=== PATIENT | male | born 1960 | race African-American/Black ===

== ENCOUNTER 2023-11-15 20:29 | Emergency (ER) | payer BC ==
[~2023-11-15] VITALS: Ht 162.6 cm; Wt 98.0 kg
[2023-11-15 20:34] VITALS: TEMP 98.4; O2SAT 98
[2023-11-15 23:03] VITALS: BP 135/72; PULSE 52; RESP 13
[2023-11-15 23:13] LABS: BASOPHILS % 0.9 % (0.0-2.0); EOSINOPHILS % 0.9 % (0.0-5.0); HEMATOCRIT. 30.1 % (42.0-52.0); HEMOGLOBIN. 9.8 g/dL (14.0-18.0); LYMPHOCYTES % 11.7 % (20.0-50.0); MEAN CORPUSCULAR HEMOGLOBIN 31.2 pg (28.0-32.0); MEAN CORPUSCULAR HGB CONC 32.5 g/dL (31.0-37.0); MEAN CORPUSCULAR VOLUME 95.9 fL (80.0-94.0); MONOCYTES % 7.4 % (2.0-8.0); NEUTROPHILS % 79.1 % (40.0-76.0); PLATELET 184 x1000/uL (130-400); RED BLOOD CELL COUNT 3.14 mill/uL (4.7-6.1); RED CELL DISTRIBUTION WIDTH 17.9 % (11.6-14.6); WHITE BLOOD COUNT 9.6 x1000/uL (4.5-11.0)
[2023-11-15 23:19] LABS: CHLORIDE 104 mEq/L (98-107); POTASSIUM 5.2 mEq/L (3.5-5.1); SODIUM 137 mEq/L (136-145)
[2023-11-15 23:20] LABS: CALCIUM 8.7 mg/dL (8.7-10.4); CARBON DIOXIDE 25 mEq/L (21-32)
[2023-11-15 23:23] LABS: INR 1.2; PROTHROMBIN TIME 13.2 sec (9.6-11.0)
[2023-11-15 23:25] LABS: GLUCOSE 107 mg/dL (70-105); UREA NITROGEN BLOOD 41 mg/dL (9-23)
[2023-11-15 23:31] LABS: ETHANOL BLOOD < 10 mg/dL (<10)
[2023-11-15 23:33] LABS: CREATININE 12.3 mg/dL (0.6-1.3)
[2023-11-15 23:34] LABS: TROPONIN I HIGH SENSITIVITY 216 ng/L (3.0-53)
== END 2023-11-16 00:20 | disposition left against medical advice (07) ==
LOC: ER 20:29
DX: E11.22 Type 2 diabetes mellitus with diabetic chronic kidney disease (principal); N18.6 End stage renal disease; I21.3 ST elevation (STEMI) myocardial infarction of unspecified site; E87.5 Hyperkalemia; I10 Essential (primary) hypertension; Z53.21 Procedure and treatment not carried out due to patient leaving prior to being seen by health care provider; Z91.048 Other nonmedicinal substance allergy status; Z98.890 Other specified postprocedural states
CPT/HCPCS: 36415; 71045; 80048; 80320; 82962; 84484; 85025; 93005; 99285; G0480

== ENCOUNTER 2023-12-05 11:04 | Inpatient (IN) | payer BC, MEDICARE ==
[2023-12-05] VITALS (8 sets, daily range): BP systolic 73–136; BP diastolic 40–103; PULSE 68–79; RESP 18–20; TEMP 35.33616–35.89176; O2SAT 100
[~2023-12-05] VITALS: Ht 167.6 cm; Wt 107.0 kg
[~2023-12-05 11:04] MED LIST: ATOR40TA70 PO; HYDR25TA78 PO; INSU100I13 SQ; LACT1CAP77 PO; LANTUSUD SUBCUT; LEVO-65 PO; MECL-299 PO; NIFE-33 PO; OLAN5TAB74 PO; SEVE800T8 PO
[2023-12-05 12:18] LABS: HEMATOCRIT. 24.3 % (42.0-52.0); HEMOGLOBIN. 7.9 g/dL (14.0-18.0); MEAN CORPUSCULAR HGB CONC 32.3 g/dL (31.0-37.0); MEAN CORPUSCULAR VOLUME 92.9 fL (80.0-94.0); MEAN PLATELET VOLUME 9.1 fl (7.4-10.4); PLATELET 258 x1000/uL (130-400); RED BLOOD CELL COUNT 2.62 mill/uL (4.7-6.1); RED CELL DISTRIBUTION WIDTH 16.2 % (11.6-14.6); WHITE BLOOD COUNT 11.9 x1000/uL (4.5-11.0)
[2023-12-05 12:21] LABS: DIFFERENTIAL COMMENT 1
[2023-12-05 12:23] LABS: CHLORIDE 102 mEq/L (98-107); POTASSIUM 5.2 mEq/L (3.5-5.1); SODIUM 137 mEq/L (136-145)
[2023-12-05 12:24] LABS: CARBON DIOXIDE 26 mEq/L (21-32)
[2023-12-05 12:25] LABS: CALCIUM 8.7 mg/dL (8.7-10.4)
[2023-12-05 12:29] LABS: GLUCOSE 168 mg/dL (70-105)
[2023-12-05 12:30] LABS: UREA NITROGEN BLOOD 47 mg/dL (9-23)
[2023-12-05 12:40] LABS: ACETAMINOPHEN < 2 ug/mL (10-30); ALANINE AMINOTRANSFERASE 36 IU/L (10-49); ALBUMIN 3.1 g/dL (3.2-4.8); ASPARTATE AMINOTRANSFERASE 36 IU/L (<34); BILIRUBIN DIRECT 0.1 mg/dL (<=3.0); BILIRUBIN TOTAL 0.3 mg/dL (0.1-1.0); PROTEIN TOTAL 6.1 g/dL (6.0-8.3)
[2023-12-05 12:43] LABS: THYROID STIMULATING HORMONE 7.22 uIU/mL (0.55-4.78)
[2023-12-05 12:44] LABS: AMMONIA < 17 uMol/L (<32)
[2023-12-05 12:56] LABS: TROPONIN I HIGH SENSITIVITY 90 ng/L (3.0-53)
[2023-12-05 12:58] LABS: ETHANOL BLOOD < 10 mg/dL (<10)
[2023-12-05 14:10] LABS: ANISOCYTOSIS 1+; PLATELET ESTIMATE NORMAL
[2023-12-05] MEDS: ASPIRIN 325MG TABLET PO ONE (14:46)
[2023-12-05] MEDS: SODIUM CHLORIDE 0.9% 250 ML IV ONE (20:56)
[2023-12-05] MEDS ORDERED: NOREPINEPHRINE 8MG/250ML PMX 250 ML IV PRN (22:00)
[2023-12-05] MEDS ORDERED: PHENYLEPHRINE 100 MG in DEXT 5% WATER 240 ML IV PRN (22:00)
[2023-12-05] MEDS ORDERED: PANTOPRAZOLE SODIUM 40 MG/VIAL IV SCH (22:15)
[2023-12-05 22:16] LABS: MEAN CORPUSCULAR HEMOGLOBIN 31.1 pg (28.0-32.0); MEAN CORPUSCULAR HGB CONC 32.9 g/dL (31.0-37.0); MEAN CORPUSCULAR VOLUME 94.4 fL (80.0-94.0); MEAN PLATELET VOLUME 9.1 fl (7.4-10.4); PLATELET 177 x1000/uL (130-400); RED BLOOD CELL COUNT 1.66 mill/uL (4.7-6.1); RED CELL DISTRIBUTION WIDTH 15.8 % (11.6-14.6); WHITE BLOOD COUNT 12.1 x1000/uL (4.5-11.0)
[2023-12-05 22:17] LABS: DIFFERENTIAL COMMENT 1
[2023-12-05 22:22] LABS: POTASSIUM 3.6 mEq/L (3.5-5.1)
[2023-12-05 22:23] LABS: CALCIUM 7.6 mg/dL (8.7-10.4); INR 1.1; PROTHROMBIN TIME 12.2 sec (9.6-11.0)
[2023-12-05 22:24] LABS: HEMOGLOBIN. 5.2 g/dL (14.0-18.0)
[2023-12-05 22:25] LABS: HEMATOCRIT. 15.7 % (42.0-52.0)
[2023-12-05] MEDS: PANTOPRAZOLE SODIUM 40 MG/VIAL IV SCH (22:28)
[2023-12-05] MEDS: SODIUM CHLORIDE 0.9% 500 ML IV ONE (22:28)
[2023-12-05 22:31] LABS: CREATININE 7.8 mg/dL (0.6-1.3)
[2023-12-05 22:41] LABS: PLATELET ESTIMATE NORMAL
[2023-12-05] MEDS: OCTREOTIDE 1,000 MCG in SODIUM CHLORIDE 0.9% 100 ML IV NR (23:38)
[2023-12-05] MEDS: OCTREOTIDE ACETATE 50 MCG/ML 1ML IV NR (23:39)
[2023-12-06] VITALS (90 sets, daily range): BP systolic 66–189; BP diastolic 16–160; PULSE 66–99; RESP 9–28; TEMP 35.584–36.9474; O2SAT 93–100
[2023-12-06 01:54] LABS: AMMONIA < 17 uMol/L (<32)
[2023-12-06 04:46] LABS: MEAN CORPUSCULAR HEMOGLOBIN 30.6 pg (28.0-32.0); MEAN CORPUSCULAR HGB CONC 32.7 g/dL (31.0-37.0); MEAN CORPUSCULAR VOLUME 93.7 fL (80.0-94.0); PLATELET 214 x1000/uL (130-400); RED BLOOD CELL COUNT 2.17 mill/uL (4.7-6.1); RED CELL DISTRIBUTION WIDTH 15.5 % (11.6-14.6); WHITE BLOOD COUNT 16.8 x1000/uL (4.5-11.0)
[2023-12-06 04:59] LABS: POTASSIUM 4.5 mEq/L (3.5-5.1)
[2023-12-06 05:01] LABS: CALCIUM 8.1 mg/dL (8.7-10.4)
[2023-12-06 05:02] LABS: BG BASE EXCESS -0.5 mmol/L (-2.0-2.0); BG CARBOXYHEMOGLOBIN 0.3 % (0.5-1.5); BG DEOXYHEMOGLOBIN 0.4 % (0.0-5.0); BG FRACTION INSPIRED OXYGEN 100; BG HCO3 ACT 22.9 mmol/L (22.0-26.0); BG OXYGEN SATURATION 99.6 % (92.0-98.5); BG OXYHEMOGLOBIN 99.3 % (94.0-97.0); BG PCO2 33.4 mmHg (35.0-45.0); BG PH 7.454 (7.350-7.450); BG PO2 299.7 mmHg (75.0-100.0); BG SAMPLE SITE RIGHT RADIAL; BG TOTAL HEMOGLOBIN 10.8 g/dL (12.0-18.0); BG VENT MODE MASK - NRB
[2023-12-06 05:03] LABS: HEMATOCRIT 20.3 % (42.0-52.0); HEMOGLOBIN 6.6 g/dL (14.0-18.0)
[2023-12-06 05:16] LABS: CREATININE 8.4 mg/dL (0.6-1.3)
[2023-12-06] MEDS ORDERED: DEXTROSE 50% WATER 50ML SYRINGE IV PRN (05:30)
[2023-12-06] MEDS: BLOOD SUGAR DIAGNOSTIC STRIP TEST SCH (07:10)
[2023-12-06] MEDS: INSULIN LISPRO 100 UNITS/ML SUBCUT SCH (08:20)
[2023-12-06] MEDS: PIPERACILLIN/TAZO 3.375G/50ML 50 ML IV SCH (09:21)
[2023-12-06] MEDS: VANCOMYCIN 1.5GM/250ML 250 ML IV NR (13:14)
[2023-12-06] MEDS ORDERED: NALOXONE HCL 0.4MG/ML VIAL IV PRN (15:15)
[2023-12-06] MEDS: LEVOFLOXACIN 500MG PREMIX 100 ML IV SCH (20:58)
[2023-12-06] MEDS: PANTOPRAZOLE 80 MG in SODIUM CHLORIDE 0.9% 100 ML IV SCH (20:58)
[2023-12-06] MEDS: HYDROCODONE/ACETAMINOPHEN 5/325MG TABLET PO PRN (22:18)
[2023-12-06 22:27] LABS: HEMATOCRIT 22.6 % (42.0-52.0); HEMOGLOBIN 7.5 g/dL (14.0-18.0)
[2023-12-07] VITALS (91 sets, daily range): BP systolic 85–166; BP diastolic 26–134; PULSE 62–79; RESP 8–28; TEMP 36.3918–37.2252; O2SAT 81–100
[2023-12-07 01:46] LABS: HEMATOCRIT 22.1 % (42.0-52.0); HEMOGLOBIN 7.2 g/dL (14.0-18.0)
[2023-12-07 06:47] LABS: BASOPHILS % 0.9 % (0.0-2.0); DIFFERENTIAL COMMENT 0; EOSINOPHILS % 3.8 % (0.0-5.0); LYMPHOCYTES % 10.5 % (20.0-50.0); MEAN CORPUSCULAR HEMOGLOBIN 31.5 pg (28.0-32.0); MEAN CORPUSCULAR HGB CONC 33.9 g/dL (31.0-37.0); MEAN PLATELET VOLUME 8.8 fl (7.4-10.4); MONOCYTES % 5.7 % (2.0-8.0); NEUTROPHILS % 79.1 % (40.0-76.0); PLATELET 212 x1000/uL (130-400); RED CELL DISTRIBUTION WIDTH 15.3 % (11.6-14.6); WHITE BLOOD COUNT 10.9 x1000/uL (4.5-11.0)
[2023-12-07 07:06] LABS: POTASSIUM 4.3 mEq/L (3.5-5.1)
[2023-12-07 07:07] LABS: CALCIUM 7.8 mg/dL (8.7-10.4)
[2023-12-07 07:57] LABS: HEMATOCRIT. 20.4 % (42.0-52.0); HEMOGLOBIN. 6.9 g/dL (14.0-18.0)
[2023-12-07 12:16] LABS: INR 1.2; PROTHROMBIN TIME 12.8 sec (9.6-11.0)
[2023-12-07 14:13] LABS: EOSINOPHILS % 4.2 % (0.0-5.0); HEMATOCRIT. 24.8 % (42.0-52.0); HEMOGLOBIN. 8.2 g/dL (14.0-18.0); LYMPHOCYTES % 9.4 % (20.0-50.0); MEAN CORPUSCULAR HEMOGLOBIN 31.2 pg (28.0-32.0); MEAN CORPUSCULAR HGB CONC 33.2 g/dL (31.0-37.0); MEAN CORPUSCULAR VOLUME 93.9 fL (80.0-94.0); MEAN PLATELET VOLUME 8.2 fl (7.4-10.4); MONOCYTES % 5.4 % (2.0-8.0); PLATELET 196 x1000/uL (130-400); RED BLOOD CELL COUNT 2.64 mill/uL (4.7-6.1); RED CELL DISTRIBUTION WIDTH 14.9 % (11.6-14.6); WHITE BLOOD COUNT 9.8 x1000/uL (4.5-11.0)
[2023-12-07] MEDS ORDERED: ONDANSETRON HCL 4MG/2ML INJ IV PRN (15:00)
[2023-12-07] MEDS: DEXTROSE 5% WATER 1,000 ML IV SCH (18:22)
[2023-12-07] MEDS: PANTOPRAZOLE SODIUM 40 MG/VIAL IV SCH (20:52)
[2023-12-08] VITALS (69 sets, daily range): BP systolic 67–172; BP diastolic 28–131; PULSE 66–89; RESP 0–25; TEMP 35.89176–36.6696; O2SAT 75–100
[2023-12-08 03:36] LABS: POTASSIUM 3.7 mEq/L (3.5-5.1)
[2023-12-08 03:37] LABS: CALCIUM 8.1 mg/dL (8.7-10.4)
[2023-12-08 03:58] LABS: CREATININE 6.9 mg/dL (0.6-1.3)
[2023-12-08] MEDS: ALBUTEROL (0.083%) 2.5MG/3ML NEB HHN PRN (05:43)
[2023-12-09] VITALS: BP 162/102; PULSE 73; RESP 20; TEMP 36.05844; O2SAT 100
[2023-12-09 04:00] VITALS: BP 116/66; PULSE 80; RESP 18; TEMP 36.16956; O2SAT 100
[2023-12-09 06:35] LABS: BASOPHILS % 1.1 % (0.0-2.0); EOSINOPHILS % 4.7 % (0.0-5.0); HEMATOCRIT. 25.3 % (42.0-52.0); HEMOGLOBIN. 8.5 g/dL (14.0-18.0); MEAN CORPUSCULAR HEMOGLOBIN 31.2 pg (28.0-32.0); MEAN CORPUSCULAR HGB CONC 33.7 g/dL (31.0-37.0); MEAN CORPUSCULAR VOLUME 92.5 fL (80.0-94.0); MEAN PLATELET VOLUME 8.5 fl (7.4-10.4); MONOCYTES % 6.3 % (2.0-8.0); NEUTROPHILS % 77.9 % (40.0-76.0); PLATELET 200 x1000/uL (130-400); RED BLOOD CELL COUNT 2.74 mill/uL (4.7-6.1); RED CELL DISTRIBUTION WIDTH 14.5 % (11.6-14.6); WHITE BLOOD COUNT 9.4 x1000/uL (4.5-11.0)
[2023-12-09 08:00] VITALS: BP 115/60; PULSE 79; RESP 20; TEMP 36.89184; O2SAT 100
[2023-12-09] MEDS: LIDOCAINE HCL 1% 10 MG/ML 10ML VIAL ONE (08:14)
[2023-12-09 08:44] LABS: ERYTHROCYTE SEDIMENTATION RATE 86 mm/hr (0-20)
[2023-12-09 12:00] VITALS: BP 143/59; PULSE 64; RESP 12; TEMP 36.55848; O2SAT 98
[2023-12-09 16:00] VITALS: BP 124/31; PULSE 65; RESP 13; TEMP 36.6696; O2SAT 100
[2023-12-09 20:00] VITALS: BP 141/99; PULSE 65; RESP 14; TEMP 36.55848; O2SAT 100
[2023-12-10] VITALS (15 sets, daily range): BP systolic 90–130; BP diastolic 41–87; PULSE 62–79; RESP 14–20; TEMP 36.16956–36.9474; O2SAT 95–100
[2023-12-10 06:44] LABS: POTASSIUM 3.8 mEq/L (3.5-5.1)
[2023-12-10 06:46] LABS: CALCIUM 8.5 mg/dL (8.7-10.4)
[2023-12-10 06:54] LABS: CREATININE 8.9 mg/dL (0.6-1.3)
[2023-12-10] MEDS ORDERED: LEVOFLOXACIN 250MG TABLET PO SCH (21:00)
[2023-12-10] MEDS: LEVOFLOXACIN 500MG TABLET PO SCH (21:44)
[2023-12-11] VITALS: BP 137/65; PULSE 63; RESP 16; TEMP 36.6696; O2SAT 96
[2023-12-11 04:00] VITALS: BP 131/61; PULSE 71; RESP 20; TEMP 36.55848; O2SAT 96
[2023-12-11 08:23] VITALS: BP 109/62; PULSE 73; RESP 18; TEMP 36.6696
[2023-12-11 09:07] LABS: HEMATOCRIT. 24.2 % (42.0-52.0); HEMOGLOBIN. 8.1 g/dL (14.0-18.0); MEAN CORPUSCULAR HEMOGLOBIN 30.6 pg (28.0-32.0); MEAN CORPUSCULAR HGB CONC 33.3 g/dL (31.0-37.0); MEAN CORPUSCULAR VOLUME 91.9 fL (80.0-94.0); MEAN PLATELET VOLUME 8.8 fl (7.4-10.4); PLATELET 167 x1000/uL (130-400); RED BLOOD CELL COUNT 2.63 mill/uL (4.7-6.1); WHITE BLOOD COUNT 7.8 x1000/uL (4.5-11.0)
[2023-12-11 09:10] LABS: POTASSIUM 3.8 mEq/L (3.5-5.1)
[2023-12-11 09:11] LABS: CALCIUM 8.4 mg/dL (8.7-10.4)
[2023-12-11 09:12] LABS: DIFFERENTIAL COMMENT 1
[2023-12-11 09:19] LABS: CREATININE 6.8 mg/dL (0.6-1.3)
[2023-12-11 12:00] VITALS: BP 110/66; PULSE 75; RESP 16; TEMP 36.6696; O2SAT 100
[2023-12-11] MEDS: VANCOMYCIN 500MG PREMIX 100 ML IV SCH (12:59)
[2023-12-11 16:00] VITALS: BP 108/65; PULSE 65; RESP 10; TEMP 36.55848; O2SAT 100
[2023-12-11 17:20] LABS: PLATELET ESTIMATE NORMAL
[2023-12-11 17:56] LABS: HEMATOCRIT 21.5 % (42.0-52.0); HEMOGLOBIN 7.3 g/dL (14.0-18.0)
[2023-12-11 20:00] VITALS: BP 101/64; PULSE 82; RESP 16; TEMP 36.9474; O2SAT 100
[2023-12-12] VITALS (10 sets, daily range): BP systolic 102–161; BP diastolic 56–129; PULSE 62–73; RESP 16–22; TEMP 36.114–36.9474; O2SAT 95–100
[2023-12-12 06:18] LABS: POTASSIUM 3.8 mEq/L (3.5-5.1)
[2023-12-12 06:20] LABS: CALCIUM 8.1 mg/dL (8.7-10.4); INR 1.1; PROTHROMBIN TIME 12.6 sec (9.6-11.0)
[2023-12-12 06:24] LABS: HEMATOCRIT. 23.3 % (42.0-52.0); HEMOGLOBIN. 7.9 g/dL (14.0-18.0); MEAN CORPUSCULAR HEMOGLOBIN 30.7 pg (28.0-32.0); MEAN CORPUSCULAR HGB CONC 33.8 g/dL (31.0-37.0); MEAN CORPUSCULAR VOLUME 90.9 fL (80.0-94.0); MEAN PLATELET VOLUME 8.7 fl (7.4-10.4); PLATELET 136 x1000/uL (130-400); RED BLOOD CELL COUNT 2.56 mill/uL (4.7-6.1); RED CELL DISTRIBUTION WIDTH 14.6 % (11.6-14.6); WHITE BLOOD COUNT 6.1 x1000/uL (4.5-11.0)
[2023-12-12 06:26] LABS: CREATININE 7.2 mg/dL (0.6-1.3)
[2023-12-12 06:38] LABS: DIFFERENTIAL COMMENT 1
[2023-12-12] MEDS ORDERED: PROPOFOL 200MG/20ML VIAL IV ONE (16:02)
[2023-12-12] MEDS ORDERED: ATROPINE SULFATE 1MG/10ML SYR IV PRN (16:45)
[2023-12-12] MEDS ORDERED: ONDANSETRON HCL 4MG/2ML INJ IV PRN ×2 (16:45)
[2023-12-12] MEDS: VANCOMYCIN 500MG PREMIX 100 ML IV SCH (21:28)
[2023-12-12 21:36] LABS: PLATELET ESTIMATE NORMAL
[2023-12-13] VITALS (15 sets, daily range): BP systolic 70–137; BP diastolic 27–101; PULSE 66–80; RESP 11–22; TEMP 36.114–36.78072; O2SAT 98–100
[2023-12-13 06:48] LABS: POTASSIUM 3.8 mEq/L (3.5-5.1)
[2023-12-13 06:49] LABS: CALCIUM 8.3 mg/dL (8.7-10.4)
[2023-12-13 07:14] LABS: CREATININE 8.5 mg/dL (0.6-1.3)
[2023-12-13 09:12] LABS: HEMATOCRIT. 22.5 % (42.0-52.0); HEMOGLOBIN. 7.5 g/dL (14.0-18.0); MEAN CORPUSCULAR HEMOGLOBIN 30.2 pg (28.0-32.0); MEAN CORPUSCULAR HGB CONC 33.4 g/dL (31.0-37.0); MEAN CORPUSCULAR VOLUME 90.5 fL (80.0-94.0); MEAN PLATELET VOLUME 9.5 fl (7.4-10.4); PLATELET 128 x1000/uL (130-400); RED BLOOD CELL COUNT 2.49 mill/uL (4.7-6.1); RED CELL DISTRIBUTION WIDTH 14.8 % (11.6-14.6); WHITE BLOOD COUNT 7.4 x1000/uL (4.5-11.0)
[2023-12-13 09:14] LABS: DIFFERENTIAL COMMENT 1
[2023-12-13 16:07] LABS: ANISOCYTOSIS 1+; PLATELET ESTIMATE NORMAL
[2023-12-13] MEDS: SORBITOL 70% SOLN 30ML PO SCH (18:00)
[2023-12-13] MEDS: METOCLOPRAMIDE HCL 10MG/2ML VIAL IV SCH (18:07)
[2023-12-13] MEDS: BISACODYL 5MG TABLET PO SCH (18:07)
[2023-12-13] MEDS: SORBITOL 70% SOLN 30ML PO NR (22:34)
[2023-12-13] MEDS: SODIUM CHLORIDE 0.9% 1,000 ML IV SCH (23:07)
[2023-12-14] VITALS (10 sets, daily range): BP systolic 83–109; BP diastolic 41–69; PULSE 60–70; RESP 10–19; TEMP 34.33608–36.55848; O2SAT 98–100
[2023-12-14 06:38] LABS: BASOPHILS % 1.2 % (0.0-2.0); EOSINOPHILS % 8.7 % (0.0-5.0); HEMATOCRIT. 22.1 % (42.0-52.0); HEMOGLOBIN. 7.5 g/dL (14.0-18.0); MEAN CORPUSCULAR HEMOGLOBIN 30.2 pg (28.0-32.0); MEAN CORPUSCULAR VOLUME 88.9 fL (80.0-94.0); MEAN PLATELET VOLUME 9.3 fl (7.4-10.4); MONOCYTES % 6.2 % (2.0-8.0); NEUTROPHILS % 71.9 % (40.0-76.0); PLATELET 97 x1000/uL (130-400); RED BLOOD CELL COUNT 2.48 mill/uL (4.7-6.1); RED CELL DISTRIBUTION WIDTH 15.8 % (11.6-14.6); WHITE BLOOD COUNT 5.5 x1000/uL (4.5-11.0)
[2023-12-14 06:48] LABS: CARBON DIOXIDE 25 mEq/L (21-32); CHLORIDE 102 mEq/L (98-107); POTASSIUM 3.6 mEq/L (3.5-5.1); SODIUM 135 mEq/L (136-145)
[2023-12-14 06:49] LABS: CALCIUM 7.7 mg/dL (8.7-10.4)
[2023-12-14 06:53] LABS: GLUCOSE 108 mg/dL (70-105)
[2023-12-14 06:54] LABS: UREA NITROGEN BLOOD 18 mg/dL (9-23)
[2023-12-14 06:55] LABS: ALANINE AMINOTRANSFERASE 12 IU/L (10-49); ALBUMIN 2.6 g/dL (3.2-4.8); ASPARTATE AMINOTRANSFERASE 16 IU/L (<34)
[2023-12-14 06:56] LABS: BILIRUBIN TOTAL 0.6 mg/dL (0.1-1.0); PROTEIN TOTAL 4.9 g/dL (6.0-8.3)
[2023-12-14 06:57] LABS: CREATININE 6.8 mg/dL (0.6-1.3)
[2023-12-14 07:02] LABS: INR 1.1; PROTHROMBIN TIME 12.5 sec (9.6-11.0)
[2023-12-14 16:39] LABS: HEMATOCRIT 22.3 % (42.0-52.0); HEMOGLOBIN 7.5 g/dL (14.0-18.0)
[2023-12-15] VITALS (9 sets, daily range): BP systolic 107–130; BP diastolic 41–74; PULSE 61–85; RESP 11–19; TEMP 33.8916–37.00296; O2SAT 96–100
[2023-12-15 07:09] LABS: MEAN CORPUSCULAR HGB CONC 34.2 g/dL (31.0-37.0); MEAN CORPUSCULAR VOLUME 87.9 fL (80.0-94.0); MEAN PLATELET VOLUME 9.4 fl (7.4-10.4); PLATELET 85 x1000/uL (130-400); RED BLOOD CELL COUNT 2.26 mill/uL (4.7-6.1); RED CELL DISTRIBUTION WIDTH 15.6 % (11.6-14.6)
[2023-12-15 07:15] LABS: INR 1.1; PROTHROMBIN TIME 12.4 sec (9.6-11.0)
[2023-12-15 07:27] LABS: POTASSIUM 3.9 mEq/L (3.5-5.1)
[2023-12-15 07:29] LABS: CALCIUM 7.8 mg/dL (8.7-10.4)
[2023-12-15 07:35] LABS: CREATININE 7.8 mg/dL (0.6-1.3)
[2023-12-15 08:01] LABS: DIFFERENTIAL COMMENT 1
[2023-12-15 08:02] LABS: HEMOGLOBIN. 6.8 g/dL (14.0-18.0)
[2023-12-15 08:03] LABS: HEMATOCRIT. 19.9 % (42.0-52.0)
[2023-12-15 16:32] LABS: HEMATOCRIT 23.3 % (42.0-52.0)
[2023-12-15] MEDS: VANCOMYCIN 500MG PREMIX 100 ML IV SCH (20:27)
[2023-12-16] VITALS (18 sets, daily range): BP systolic 81–120; BP diastolic 43–88; PULSE 64–74; RESP 12–19; TEMP 36.00288–36.83628; O2SAT 96–100
[2023-12-16 05:32] LABS: PLATELET ESTIMATE DECREASED
[2023-12-16 07:05] LABS: INR 1.1; PROTHROMBIN TIME 12.6 sec (9.6-11.0)
[2023-12-16 07:19] LABS: BASOPHILS % 1.3 % (0.0-2.0); EOSINOPHILS % 13.5 % (0.0-5.0); HEMOGLOBIN. 7.1 g/dL (14.0-18.0); LYMPHOCYTES % 11.9 % (20.0-50.0); MEAN CORPUSCULAR HEMOGLOBIN 30.5 pg (28.0-32.0); MEAN CORPUSCULAR HGB CONC 34.6 g/dL (31.0-37.0); MEAN CORPUSCULAR VOLUME 88.1 fL (80.0-94.0); MEAN PLATELET VOLUME 9.6 fl (7.4-10.4); MONOCYTES % 6.5 % (2.0-8.0); NEUTROPHILS % 66.8 % (40.0-76.0); PLATELET 89 x1000/uL (130-400); RED BLOOD CELL COUNT 2.34 mill/uL (4.7-6.1); RED CELL DISTRIBUTION WIDTH 15.3 % (11.6-14.6); WHITE BLOOD COUNT 5.5 x1000/uL (4.5-11.0)
[2023-12-16 08:19] LABS: HEMATOCRIT. 20.6 % (42.0-52.0)
[2023-12-16] MEDS: SUCRALFATE 1G TABLET PO SCH (16:47)
[2023-12-17] VITALS: BP 100/72; PULSE 68; RESP 16; TEMP 36.6696; O2SAT 97
[2023-12-17 04:00] VITALS: BP 109/77; PULSE 63; RESP 16; TEMP 36.61404; O2SAT 98
[2023-12-17 07:21] LABS: INR 1.1; PROTHROMBIN TIME 12.4 sec (9.6-11.0)
[2023-12-17 08:00] VITALS: BP 134/62; PULSE 69; RESP 12; TEMP 36.50292; O2SAT 100
[2023-12-17 08:30] LABS: CALCIUM 7.7 mg/dL (8.7-10.4)
[2023-12-17 08:37] LABS: CREATININE 7.6 mg/dL (0.6-1.3)
[2023-12-17 08:44] LABS: BASOPHILS % 1.2 % (0.0-2.0); EOSINOPHILS % 14.9 % (0.0-5.0); HEMATOCRIT. 24.2 % (42.0-52.0); LYMPHOCYTES % 11.9 % (20.0-50.0); MEAN CORPUSCULAR HEMOGLOBIN 30.5 pg (28.0-32.0); MEAN CORPUSCULAR HGB CONC 33.9 g/dL (31.0-37.0); MEAN PLATELET VOLUME 10.2 fl (7.4-10.4); MONOCYTES % 6.1 % (2.0-8.0); NEUTROPHILS % 65.9 % (40.0-76.0); PLATELET 88 x1000/uL (130-400); RED BLOOD CELL COUNT 2.69 mill/uL (4.7-6.1); RED CELL DISTRIBUTION WIDTH 15.1 % (11.6-14.6); WHITE BLOOD COUNT 5.6 x1000/uL (4.5-11.0)
[2023-12-17 09:12] LABS: HEMOGLOBIN. 8.2 g/dL (14.0-18.0)
[2023-12-17 12:00] VITALS: BP 107/73; PULSE 70; RESP 13; TEMP 36.72516; O2SAT 99
[2023-12-17 16:00] VITALS: BP 111/71; PULSE 71; RESP 15; TEMP 36.55848; O2SAT 100
[2023-12-17 20:00] VITALS: BP 122/65; PULSE 87; RESP 15; TEMP 36.6696; O2SAT 100
[2023-12-18] VITALS (13 sets, daily range): BP systolic 92–146; BP diastolic 31–110; PULSE 68–88; RESP 12–18; TEMP 36.3918–36.78072; O2SAT 99–100
[2023-12-18 06:34] LABS: POTASSIUM 3.8 mEq/L (3.5-5.1)
[2023-12-18 07:53] LABS: HEMATOCRIT. 25.3 % (42.0-52.0); HEMOGLOBIN. 8.3 g/dL (14.0-18.0); MEAN CORPUSCULAR HEMOGLOBIN 29.6 pg (28.0-32.0); MEAN CORPUSCULAR HGB CONC 32.7 g/dL (31.0-37.0); MEAN CORPUSCULAR VOLUME 90.5 fL (80.0-94.0); MEAN PLATELET VOLUME 10.2 fl (7.4-10.4); PLATELET 88 x1000/uL (130-400); RED CELL DISTRIBUTION WIDTH 15.4 % (11.6-14.6); WHITE BLOOD COUNT 5.4 x1000/uL (4.5-11.0)
[2023-12-18 07:57] LABS: DIFFERENTIAL COMMENT 1
[2023-12-18 08:15] LABS: CREATININE 8.7 mg/dL (0.6-1.3)
[2023-12-18 11:52] LABS: HEPATITIS B SURFACE ANTIGEN NEGATIVE (Negative)
[2023-12-18 12:13] LABS: HEPATITIS A AB IGM NEGATIVE (Negative)
[2023-12-18 12:14] LABS: HEPATITIS B CORE AB IGM NEGATIVE (Negative); HEPATITIS C AB NON REACTIVE (Neg) (Negative)
[2023-12-18 20:42] LABS: PLATELET ESTIMATE DECREASED
[2023-12-19] VITALS (7 sets, daily range): BP systolic 114–139; BP diastolic 55–103; PULSE 69–90; RESP 12–19; TEMP 36.114–37.00296; O2SAT 99–100
[2023-12-19] MEDS ORDERED: LIDOCAINE HCL 1% 10 MG/ML 10ML VIAL ONE (12:54)
[2023-12-19] MEDS ORDERED: BUPIVACAINE HCL/PF 0.5% (5MG/ML) 10ML ONE (12:55)
[2023-12-19] MEDS ORDERED: POLYMYXIN B SULFATE 500000 UNITS/VIAL ONE (12:56)
[2023-12-19] MEDS ORDERED: FENTANYL CITRATE/PF 50MCG/ML 2ML VIAL ONE (13:25)
[2023-12-19] MEDS ORDERED: PROPOFOL 200MG/20ML VIAL IV ONE (13:25)
[2023-12-19] MEDS ORDERED: HYDROMORPHONE HCL/PF 1MG/ML INJ IV PRN (14:00)
[2023-12-19] MEDS ORDERED: FENTANYL CITRATE/PF 50MCG/ML 2ML VIAL IV PRN (14:00)
[2023-12-19] MEDS ORDERED: ONDANSETRON HCL 4MG/2ML INJ IV PRN (14:00)
[2023-12-20] VITALS: BP 147/87; PULSE 74; RESP 18; TEMP 36.3918; O2SAT 98
[2023-12-20 04:00] VITALS: BP 126/70; PULSE 71; RESP 20; TEMP 36.28068; O2SAT 99
[2023-12-20 12:00] VITALS: BP 139/80; PULSE 69; RESP 18; TEMP 36.22512; O2SAT 100
[2023-12-20 12:01] LABS: HEMATOCRIT. 26.2 % (42.0-52.0); HEMOGLOBIN. 8.8 g/dL (14.0-18.0); MEAN CORPUSCULAR HEMOGLOBIN 30.2 pg (28.0-32.0); MEAN CORPUSCULAR HGB CONC 33.7 g/dL (31.0-37.0); MEAN CORPUSCULAR VOLUME 89.5 fL (80.0-94.0); MEAN PLATELET VOLUME 9.5 fl (7.4-10.4); PLATELET 84 x1000/uL (130-400); RED BLOOD CELL COUNT 2.93 mill/uL (4.7-6.1); RED CELL DISTRIBUTION WIDTH 15.3 % (11.6-14.6); WHITE BLOOD COUNT 7.6 x1000/uL (4.5-11.0)
[2023-12-20 12:03] LABS: DIFFERENTIAL COMMENT 1
[2023-12-20 12:14] LABS: POTASSIUM 3.5 mEq/L (3.5-5.1)
[2023-12-20 12:15] LABS: CALCIUM 8.1 mg/dL (8.7-10.4)
[2023-12-20 12:23] LABS: CREATININE 8.9 mg/dL (0.6-1.3)
[2023-12-20] MEDS: METOCLOPRAMIDE HCL 10MG TABLET PO NR (14:03)
[2023-12-20 15:11] LABS: ANISOCYTOSIS 1+; PLATELET ESTIMATE DECREASED
[2023-12-20 16:00] VITALS: BP 136/33; PULSE 71; RESP 20; TEMP 36.61404; O2SAT 100
[2023-12-20] MEDS: VANCOMYCIN 750MG/150ML (BAXTER) IV NR (17:00)
[2023-12-20 20:00] VITALS: BP 129/41; PULSE 72; RESP 20; TEMP 36.28068; O2SAT 98
[2023-12-21] VITALS (13 sets, daily range): BP systolic 100–157; BP diastolic 48–115; PULSE 63–104; RESP 18–20; TEMP 36.00288–36.3918; O2SAT 98–100
[2023-12-21 08:07] LABS: HEMATOCRIT. 27.1 % (42.0-52.0); MEAN CORPUSCULAR HEMOGLOBIN 29.6 pg (28.0-32.0); MEAN CORPUSCULAR HGB CONC 33.1 g/dL (31.0-37.0); MEAN CORPUSCULAR VOLUME 89.7 fL (80.0-94.0); MEAN PLATELET VOLUME 9.9 fl (7.4-10.4); PLATELET 76 x1000/uL (130-400); RED BLOOD CELL COUNT 3.03 mill/uL (4.7-6.1); RED CELL DISTRIBUTION WIDTH 15.4 % (11.6-14.6); WHITE BLOOD COUNT 7.1 x1000/uL (4.5-11.0)
[2023-12-21 08:12] LABS: DIFFERENTIAL COMMENT 1
[2023-12-21 08:22] LABS: POTASSIUM 3.7 mEq/L (3.5-5.1)
[2023-12-21 08:23] LABS: CALCIUM 8.1 mg/dL (8.7-10.4)
[2023-12-21 08:33] LABS: CREATININE 9.8 mg/dL (0.6-1.3)
[2023-12-21] MEDS: ONDANSETRON 4MG ODT PO NR (11:34)
[2023-12-21] MEDS: VANCOMYCIN 750MG PREMIX 150 ML IV SCH (21:00)
[2023-12-22] VITALS: BP 138/58; PULSE 80; RESP 20; TEMP 36.33624; O2SAT 97
[2023-12-22 04:00] VITALS: BP 130/82; PULSE 85; PULSE 97; RESP 20; TEMP 36.22512; TEMP 36.28068; O2SAT 97
[2023-12-22 08:00] VITALS: BP 126/81; PULSE 75; RESP 18; TEMP 35.61396; TEMP 36.16956; O2SAT 95
[2023-12-22 08:26] LABS: BASOPHILS % 0.6 % (0.0-2.0); EOSINOPHILS % 10.8 % (0.0-5.0); HEMATOCRIT. 26.2 % (42.0-52.0); HEMOGLOBIN. 8.7 g/dL (14.0-18.0); MEAN CORPUSCULAR HGB CONC 33.2 g/dL (31.0-37.0); MEAN CORPUSCULAR VOLUME 90.3 fL (80.0-94.0); MEAN PLATELET VOLUME 9.9 fl (7.4-10.4); MONOCYTES % 5.2 % (2.0-8.0); NEUTROPHILS % 75.4 % (40.0-76.0); PLATELET 73 x1000/uL (130-400); RED CELL DISTRIBUTION WIDTH 16.2 % (11.6-14.6); WHITE BLOOD COUNT 6.4 x1000/uL (4.5-11.0)
[2023-12-22 12:00] VITALS: BP 148/81; PULSE 77; RESP 18; TEMP 36.28068; O2SAT 99
[2023-12-22] MEDS: ONDANSETRON 4MG ODT PO PRN (13:10)
[2023-12-22 14:28] LABS: ANISOCYTOSIS 1+; PLATELET ESTIMATE DECREASED
[2023-12-22 16:00] VITALS: BP 145/82; PULSE 81; RESP 16; TEMP 36.28068; O2SAT 99
[2023-12-22 20:00] VITALS: BP 124/36; PULSE 85; RESP 16; TEMP 36.16956; O2SAT 95
[2023-12-23] VITALS: BP 130/31; PULSE 85; RESP 18; TEMP 36.05844; O2SAT 100
[2023-12-23 04:00] VITALS: BP 120/27; PULSE 57; RESP 18; TEMP 36.22512; O2SAT 96
[2023-12-23 08:00] VITALS: BP 124/70; PULSE 82; RESP 20; TEMP 36.50292; O2SAT 100
[2023-12-23] MEDS ORDERED: LIDOCAINE HCL 1% 10 MG/ML 10ML VIAL ONE (08:32)
[2023-12-23 10:04] LABS: HEMATOCRIT. 25.5 % (42.0-52.0); HEMOGLOBIN. 8.6 g/dL (14.0-18.0); MEAN CORPUSCULAR HEMOGLOBIN 30.3 pg (28.0-32.0); MEAN CORPUSCULAR HGB CONC 33.5 g/dL (31.0-37.0); MEAN CORPUSCULAR VOLUME 90.4 fL (80.0-94.0); MEAN PLATELET VOLUME 9.6 fl (7.4-10.4); PLATELET 76 x1000/uL (130-400); RED BLOOD CELL COUNT 2.82 mill/uL (4.7-6.1); RED CELL DISTRIBUTION WIDTH 16.2 % (11.6-14.6); WHITE BLOOD COUNT 7.9 x1000/uL (4.5-11.0)
[2023-12-23 10:21] LABS: DIFFERENTIAL COMMENT 1
[2023-12-23 11:37] LABS: ANISOCYTOSIS 1+; PLATELET ESTIMATE DECREASED
[2023-12-23 11:58] LABS: POTASSIUM 3.8 mEq/L (3.5-5.1)
[2023-12-23 11:59] LABS: CALCIUM 7.9 mg/dL (8.7-10.4)
[2023-12-23 12:00] VITALS: BP 123/57; RESP 19; TEMP 36.61404; O2SAT 100
[2023-12-23 12:07] LABS: CREATININE 9.7 mg/dL (0.6-1.3)
[2023-12-23 16:00] VITALS: BP 100/52; PULSE 74; RESP 19; TEMP 36.55848; O2SAT 100
[2023-12-23 20:00] VITALS: BP 120/68; PULSE 62; RESP 20; TEMP 36.33624; O2SAT 100
[2023-12-24] VITALS (14 sets, daily range): BP systolic 114–162; BP diastolic 41–65; PULSE 51–88; RESP 16–20; TEMP 36.05844–36.44736; O2SAT 95–100
[2023-12-24 07:35] LABS: BASOPHILS % 0.5 % (0.0-2.0); EOSINOPHILS % 4.7 % (0.0-5.0); HEMATOCRIT. 23.6 % (42.0-52.0); HEMOGLOBIN. 7.7 g/dL (14.0-18.0); LYMPHOCYTES % 8.2 % (20.0-50.0); MEAN CORPUSCULAR HEMOGLOBIN 29.8 pg (28.0-32.0); MEAN CORPUSCULAR HGB CONC 32.8 g/dL (31.0-37.0); MEAN CORPUSCULAR VOLUME 90.9 fL (80.0-94.0); MONOCYTES % 5.2 % (2.0-8.0); NEUTROPHILS % 81.4 % (40.0-76.0); PLATELET 74 x1000/uL (130-400); RED CELL DISTRIBUTION WIDTH 16.1 % (11.6-14.6); WHITE BLOOD COUNT 9.1 x1000/uL (4.5-11.0)
[2023-12-24 07:36] LABS: POTASSIUM 3.6 mEq/L (3.5-5.1)
[2023-12-24 07:38] LABS: CALCIUM 8.2 mg/dL (8.7-10.4)
[2023-12-24 07:49] LABS: CREATININE 10.9 mg/dL (0.6-1.3)
[2023-12-24] MEDS: POTASSIUM CHLORIDE 20MEQ TABLET SR PO NR (11:03)
[2023-12-24] MEDS ORDERED: METOCLOPRAMIDE HCL 10MG/2ML VIAL IV SCH (11:30)
[2023-12-24] MEDS ORDERED: BISACODYL 5MG TABLET PO SCH (11:30)
[2023-12-24] MEDS ORDERED: SORBITOL 70% SOLN 30ML PO NR (12:00)
[2023-12-24] MEDS ORDERED: SORBITOL 70% SOLN 30ML PO SCH (17:00)
[2023-12-24] MEDS ORDERED: VANCOMYCIN 1GM/200ML PMX (BAXTER) IV NR (17:00)
== END 2023-12-24 18:22 | DRG 853 ==
LOC: ER 11:04 → 5WST 16:28 → EDBEDREQ 16:34 → EDBEDREQTM 16:34 → CVICU 23:00 → 3WST 12-08 18:11 → 6WST 12-19 10:39
PROVIDERS: ADMIT Internal Medicine; ATTEND Internal Medicine
PROC: 5A1D70Z Performance of Urinary Filtration, Intermittent, Less than 6 Hours Per Day (ICD-10-PCS; 2023-12-05)
PROC: 30233N1 Transfusion of Nonautologous Red Blood Cells into Peripheral Vein, Percutaneous Approach (ICD-10-PCS; principal; 2023-12-06)
PROC: 5A1D70Z Performance of Urinary Filtration, Intermittent, Less than 6 Hours Per Day (ICD-10-PCS; 2023-12-07)
PROC: 0DJ68ZZ Inspection of Stomach, Via Natural or Artificial Opening Endoscopic (ICD-10-PCS; 2023-12-07)
PROC: 4A10X4Z Monitoring of Central Nervous Electrical Activity, External Approach (ICD-10-PCS; 2023-12-07)
PROC: 02HV33Z Insertion of Infusion Device into Superior Vena Cava, Percutaneous Approach (ICD-10-PCS; 2023-12-09)
PROC: B548ZZA Ultrasonography of Superior Vena Cava, Guidance (ICD-10-PCS; 2023-12-09)
PROC: 5A1D70Z Performance of Urinary Filtration, Intermittent, Less than 6 Hours Per Day (ICD-10-PCS; 2023-12-10)
PROC: 0DJ68ZZ Inspection of Stomach, Via Natural or Artificial Opening Endoscopic (ICD-10-PCS; 2023-12-12)
PROC: 5A1D70Z Performance of Urinary Filtration, Intermittent, Less than 6 Hours Per Day (ICD-10-PCS; 2023-12-13)
PROC: 5A1D70Z Performance of Urinary Filtration, Intermittent, Less than 6 Hours Per Day (ICD-10-PCS; 2023-12-16)
PROC: 5A1D70Z Performance of Urinary Filtration, Intermittent, Less than 6 Hours Per Day (ICD-10-PCS; 2023-12-18)
PROC: 0Y6Y0Z3 Detachment at Left 5th Toe, Low, Open Approach (ICD-10-PCS; 2023-12-20)
PROC: 5A1D70Z Performance of Urinary Filtration, Intermittent, Less than 6 Hours Per Day (ICD-10-PCS; 2023-12-21)
PROC: 02HV33Z Insertion of Infusion Device into Superior Vena Cava, Percutaneous Approach (ICD-10-PCS; 2023-12-23)
PROC: B548ZZA Ultrasonography of Superior Vena Cava, Guidance (ICD-10-PCS; 2023-12-23)
PROC: 5A1D70Z Performance of Urinary Filtration, Intermittent, Less than 6 Hours Per Day (ICD-10-PCS; 2023-12-24)
DX: A41.9 Sepsis, unspecified organism (principal); G92.8 Other toxic encephalopathy; N18.6 End stage renal disease; K26.4 Chronic or unspecified duodenal ulcer with hemorrhage; R65.21 Severe sepsis with septic shock; J96.00 Acute respiratory failure, unspecified whether with hypoxia or hypercapnia; I13.11 Hypertensive heart and chronic kidney disease without heart failure, with stage 5 chronic kidney disease, or end stage renal disease; L03.116 Cellulitis of left lower limb; J81.1 Chronic pulmonary edema; M86.8X7 Other osteomyelitis, ankle and foot; E11.52 Type 2 diabetes mellitus with diabetic peripheral angiopathy with gangrene; I96 Gangrene, not elsewhere classified; E87.5 Hyperkalemia; E11.22 Type 2 diabetes mellitus with diabetic chronic kidney disease; D50.9 Iron deficiency anemia, unspecified; K20.90 Esophagitis, unspecified without bleeding; L97.529 Non-pressure chronic ulcer of other part of left foot with unspecified severity; E11.51 Type 2 diabetes mellitus with diabetic peripheral angiopathy without gangrene; E11.621 Type 2 diabetes mellitus with foot ulcer; I08.0 Rheumatic disorders of both mitral and aortic valves; E78.5 Hyperlipidemia, unspecified; K29.70 Gastritis, unspecified, without bleeding; E11.69 Type 2 diabetes mellitus with other specified complication; K31.7 Polyp of stomach and duodenum; K44.9 Diaphragmatic hernia without obstruction or gangrene; D50.0 Iron deficiency anemia secondary to blood loss (chronic); E87.70 Fluid overload, unspecified; K29.80 Duodenitis without bleeding; R79.89 Other specified abnormal findings of blood chemistry; Z99.2 Dependence on renal dialysis; Z79.4 Long term (current) use of insulin; Z86.73 Personal history of transient ischemic attack (TIA), and cerebral infarction without residual deficits; Z89.422 Acquired absence of other left toe(s); Z88.8 Allergy status to other drugs, medicaments and biological substances
CPT/HCPCS: 36415; 36573; 36600; 71045; 73630; 73718; 78278; 80048; 80053; 80076; 80202; 80307; 80320; 80329; 82140; 82375; 82805; 82962; 83036; 83880; 84145; 84443; 84484; 85014; 85018; 85025; 85027; 85651; 86705; 86709; 86850; 86900; 86920; 87070; 87077; 87186; 87340; 88304; 88311; 90935; 93005; 93306; 94640; 97110; 97161; 97166; 97535; 99291; A9560; C1725; J1815; J1956; J2354; J2470; J2543; J2704; J2765; J3010; J3370; J3490; J7030; J7050; J7070; J8597; P9016; Q0162; G0480